=== PATIENT | female | born 1950 | race Caucasian/White ===

== ENCOUNTER → 2024-05-19 12:28 | Outpatient (REF) | payer MEDICARE, OTHER, SELFPAY | LOC: WDC 12:28 | PROVIDERS: ATTENDING PHYSICIAN Family Medicine | DX: Z12.31 Encounter for screening mammogram for malignant neoplasm of breast (principal) | CPT/HCPCS: 77063; 77067 ==

== ENCOUNTER → 2024-07-02 14:34 | Outpatient (REF) | payer MEDICARE, OTHER, SELFPAY | LOC: PAVMRI 14:34 | PROVIDERS: ATTENDING PHYSICIAN Family Medicine | DX: M50.30 Other cervical disc degeneration, unspecified cervical region (principal); M54.2 Cervicalgia; M54.12 Radiculopathy, cervical region | CPT/HCPCS: 72141 ==

== ENCOUNTER → 2024-07-06 12:27 | Outpatient (REF) | payer MEDICARE, OTHER, SELFPAY | LOC: RAD 12:27 | PROVIDERS: ATTENDING PHYSICIAN Internal Medicine Cardiovascular Disease; FAMILY PHYSICIAN Family Medicine | DX: R09.89 Other specified symptoms and signs involving the circulatory and respiratory systems (principal) | CPT/HCPCS: 93922; 93925 ==

== ENCOUNTER 2024-07-28 16:37 | Emergency (ER) | payer MEDICARE, OTHER, SELFPAY ==
[2024-07-28 16:44] VITALS: BP 152/99
[2024-07-28 17:31] VITALS: BMI 32.0
[2024-07-28] MEDS: TYLENOL 1000 MG PO (17:35)
[2024-07-28] MEDS: ADACEL 0.5 ML IM (18:37)
[2024-07-28] MEDS: NORCO 5/325 1 TABLET PO (19:00)
--- NOTE | 2024-07-28 19:35 | ED.GENMED ---
Addendum entered and electronically signed by Nader Chakraborty PA-C 07/29/24 13:37:
Received telephone call from both patient and pharmacy stating that they do not have the Vicodin in stock and are requesting a different prescription. This was verified with pharmacy. New prescription for Percocet for same quantity given. Patient
notified.
Original Note:
History of Present Illness
General
Chief Complaint: Fall
Source: patient
Exam Limitations: none
Time Seen by Provider: 07/28/24 16:57
Nursing documentation reviewed up to this point in time: agreed with
History of Present Illness
History of Present Illness:
73 y/o F with h/o htn, bladder ca, R nephrectomy
here with L wrist pain and L 5th finger pain and forehead sweling after mechanical fall today on her deck
she tripped and hit her head on the ground she believes, but it happened quickly
no loc
most pain is L wrist but she started feeling sore in her neck, L shoulder, L forearm and L5th finger
no chest pain, abdomianl pain, back pain, hip pain
teatnus not UTD
has skin tear on forehead
no headache, no LOC, no dizziness, no fogginess, no AC
Past History
Past History
ED Past Medical History: HTN and Other (Kidney stones)
ED Past Surgical History: None
Social History
Tobacco: Non-smoker
Alcohol: None
Review of Systems
Review of Systems
Allergies reviewed?: Yes
Phy Exam
Physical Exam
Physical Exam:
GENERAL: Alert , in no apparent distress
HEAD: L forehead contusion approx 3 cm hematoma with superficial arc shaped skin tear approx 2 cm
NECK: no midline tenderness, active ROM intact, no paraspinal muscle tenderness;
mild soreness with movement
EYE: pupils equal and reactive, EOMs intact.
ENT: o/p clr, mmm. no hemotympanum
CARDIAC: Regular rate and rhythm, no edema
LUNGS: Clear breath sounds bilaterally, no acute respiratory distress, no wheezes/rales/rhonchi
ABDOMEN: Soft, without focal tenderness, no r/g, no cvat no bruising
NEUROLOGICAL: Alert and oriented, no focal neuro deficits, CN intact, 5/5 strength, sensation intact
SKIN: Warm and dry, skin tear forehead
MUSCULOSKELETAL: L shoulde rmild soreness, full rom intact
lef telbow full ROM intact
prox L forearm mild tenderness
mod tednerenss to L distal wrist and STS and tenderness to L prox 5th phalanx
limited painful ROM of th ewrist and finger
PSYCH: Normal and appropriate interaction.
Course
Orders/Labs/Results
Orders:
Orders
07/28/24 16:50
CR Wrist - Left Min 3 Views Urgent
Comment:
Reason For Exam: fall
07/28/24 17:26
CT Cervical Spine W/o Iv Contr Urgent
Comment:
Reason For Exam: neck pain, fall
CT Head W/o Iv Contrast Urgent
Comment:
Reason For Exam: headache, fall, hit head
Acetaminophen [Tylenol] 1,000 mg PO NOW STA
Tetanus/Diphth/Acelpertussis [Adacel] 0.5 ml IM .ONCE ONE
Forearm, Left 2 View [CR Forearm - Left 2 View] Urgent
Comment:
Reason For Exam: left forearm pain
07/28/24 17:28
Hand, Left 3 View [CR Hand - Left Min 3 Views] Urgent
Comment:
Reason For Exam: left pinky finger fracture
07/28/24 17:37
Shoulder, Left 2 View CR [CR Shoulder - Left Min 2 View*] Urgent
Comment:
Reason For Exam: fall
07/28/24 18:58
Hydrocodone 5/APAP 325 [[place] 5/325] 1 tablet PO NOW STA
Vital Signs
Initial and Last Documented VS:
Initial Vital Signs
Temp Pulse Resp BP Pulse Ox
97.9 F 105 18 152/99 100
07/28/24 16:44 07/28/24 16:44 07/28/24 16:44 07/28/24 16:44 07/28/24 16:44
Last Documented Vital Signs
Temp Pulse Resp BP Pulse Ox
97.9 F 105 18 152/99 100
07/28/24 16:44 07/28/24 16:44 07/28/24 16:44 07/28/24 16:44 07/28/24 16:44
MDM/Problems Addressed
Differential Diagnosis Includes:
wrist fracture, finger fracture, contusion, head injury, abrasion, concussion
MDM/Problems Addressed:
73 y/o F
no AC
mechanical fall today with mostly L wrist and 5th finger injury
also hit head
no vomiting, LOC
on exam neuro nitact
hematoma L forehead
superficial abrasion, tetanus updated
offered steristrips but pt declined
unlikely concussion
head ct neg
incidental c spine findings d/w pt and she was already aware
L wrist xray indep reviewed, L 5th finger fracture indep reviewed
impacted distal radius fracture
forearm and shoulder arthritis
avoids ndsaids becuase of nephrectomy
tylenol or vicodin prn pain
wrist immobilized with sugar tong
sling
*Critical Care Note
Total Time (30-74mins, 75-104mins- exclusive of procedures): Not Applicable
ED Attending Note
-
Portions of this chart may have been created with voice recognition software.� Occasional wrong word or��sound alike� substitutions may have occurred due to the inherent limitations of voice recognition software.
Discharge Plan
Departure
Patient Disposition: Home (Routine Discharge)
Date of Disposition: 07/28/24
Time of Disposition: 18:37
Patient with high blood pressure during this ER visit?: Yes
Condition: Fair
Covid-19: Not Applicable
Discharge Problem:
Distal radius fracture, Finger fracture, Contusion of head
Instructions: Wound Care (DC), Wrist Fracture
Prescriptions:
New
hydrocodone-acetaminophen 5-325 mg tablet
1 tab PO BID PRN (Reason: Pain) Qty: 12 0RF
No Action
metoprolol succinate 25 MG tablet extended release 24 hr
25 mg PO DAILY Qty: 30 0RF
amlodipine 5 MG tablet
5 mg PO DAILY
aspirin 81 MG tablet,delayed release (DR/EC)
81 mg PO DAILY
Referrals:
Jeffy Decker MD [Active] - Follow up in 1 week
Gray Triana MD [Family Provider] -
Activity Restrictions/Additional Instructions:
You have both 5th proximal phalanx fracture (5th finger) and a distal radius fracture. Please follow-up with hand surgery Dr. Decker for this.
Ice off-and-on, elevate your arm, use a sling while awake, remove it at night. Your head and neck scans show some degenerative changes but no trauma. Your wound on your forehead was treated with Steri-Strips. Allow them to fall off, keep them dry
for 2 days. After that you can get them wet. You cannot get the wrist splint wet. Do not take it off unless it feels extra tight and then you can rewrap it. Take either Tylenol
2-3 times a day or the hydrocodone/Tylenol tablet called Vicodin as needed for pain. The Vicodin can make you sleepy.
Return for any concerns
Interventions
Interventions:
*Risk Screen - Suicide Last Done: 07/28/24 17:29
*General Assessment Last Done: 07/28/24 16:44
*ED COVID-19 Vaccine History Last Done: 07/28/24 16:44
*Nursing Disposition Last Done: 07/28/24 19:04
ED-Musculoskeletal Assessment Last Done: 07/28/24 17:29
ED- Neurological Assessment Last Done: 07/28/24 17:29
Discharge Date and Time
Discharge Date/Time: 07/28/24 19:04
Print Language: SRI LANKAN
== END 2024-07-28 19:04 | disposition home or self-care (01) ==
LOC: EMR 16:37
PROVIDERS: EMERGENCY PHYSICIAN Emergency Medicine; FAMILY PHYSICIAN Ophthalmology
DX: S52.592A Other fractures of lower end of left radius, initial encounter for closed fracture (principal); S62.607A Fracture of unspecified phalanx of left little finger, initial encounter for closed fracture; S00.83XA Contusion of other part of head, initial encounter; S00.81XA Abrasion of other part of head, initial encounter; M54.2 Cervicalgia; M25.512 Pain in left shoulder; R51.9 Headache, unspecified; W18.09XA Striking against other object with subsequent fall, initial encounter; Y93.89 Activity, other specified; Y92.008 Other place in unspecified non-institutional (private) residence as the place of occurrence of the external cause; Z23 Encounter for immunization; I10 Essential (primary) hypertension; Z87.442 Personal history of urinary calculi; Z85.51 Personal history of malignant neoplasm of bladder; Z90.5 Acquired absence of kidney
CPT/HCPCS: 99284; 90471; 70450; 72125; 73030; 73090; 73110; 73130; 90715

== ENCOUNTER 2024-10-17 18:39 | Emergency (ER) | payer MEDICARE, OTHER, SELFPAY ==
[2024-10-17 18:57] VITALS: BP 193/117
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
[2024-10-17] MEDS: NSS 500 IV (20:13)
[2024-10-17 20:39] VITALS: BP 156/84
[2024-10-17 20:54] LABS: % Basophils 0.7 % (0-2); % Eosinophils 1.5 % (0-6); % Immature Granulocytes 0.4 % (0-0.5); % Lymphocytes 13.5 % (20.5-51.1); % Neutrophils 75.9 % (42.2-75.2); Absolute Basophils 0.1 10^3/uL (0-0.2); Absolute Eosinophils 0.2 10^3/uL (0-0.7); Absolute Lymphocytes 1.3 10^3/uL (1.2-3.4); Absolute Monocytes 0.8 10^3/uL (0.1-0.6); Absolute Neutrophils 7.5 10^3/uL (1.4-6.5); Hematocrit 38.3 % (37.0-47.0); Hemoglobin 13.2 g/dL (12.0-16.0); Mean Corp Hgb Conc. 34.5 g/dL (33.0-37.0); Mean Corpuscular Hgb 31.5 pg (27.0-31.0); Mean Corpuscular Volume 91.4 fL (81.0-99.0); Mean Platelet Volume 9.3 fL (7.4-10.4); Nucleated Red Blood Cells % 0 %; Platelet Count 268 10^3/uL (130-400); Red Blood Cell Count 4.19 10^6/uL (4.20-5.40); Red Cell Dist. Width 12.7 % (11.5-14.5); White Blood Cell Count 9.9 10^3/uL (4.8-10.8)
[2024-10-17 21:00] VITALS: BP 148/77
[2024-10-17 21:03] LABS: ALT (SGPT) 22 U/L (0-35); AST (SGOT) 26 U/L (14-36); Albumin 4.7 g/dl (3.5-5.0); Alkaline Phosphatase 92 U/L (38-126); Blood Urea Nitrogen 19 mg/dl (7-17); Calcium 9.3 mg/dl (8.4-10.2); Carbon Dioxide 26 mmol/L (22-30); Chloride 99 mmol/L (98-107); Glucose 194 mg/dl (70-99); Sodium 140 mmol/L (135-145); Total Bilirubin 0.8 mg/dl (0.2-1.3); Total Protein 7.9 g/dl (6.3-8.2); eGFR > 60.00
[2024-10-17 21:11] LABS: Troponin I < 0.012 ng/ml
[2024-10-17 21:34] LABS: TSH Reflex To Free T4 2.77 uIU/ml (0.47-4.68)
[2024-10-17 21:44] VITALS: BP 153/75
[2024-10-17 22:00] VITALS: BP 143/72
== END 2024-10-17 22:16 | disposition home or self-care (01) ==
LOC: EMR 18:39
PROVIDERS: Emergency Medicine; EMERGENCY PHYSICIAN Emergency Medicine; FAMILY PHYSICIAN Family Medicine
DX: R07.89 Other chest pain (principal); R00.2 Palpitations; I10 Essential (primary) hypertension
CPT/HCPCS: 99285; 96360; 71046; 71275; 80053; 84443; 84484; 85025; 93005; Q9967

== ENCOUNTER 2024-10-22 15:06 | Outpatient (RCR) | payer MEDICARE, OTHER, SELFPAY | END 2024-10-22 23:59 | disposition home or self-care (01) | LOC: ROT 15:06 | PROVIDERS: ATTENDING PHYSICIAN Orthopaedic Surgery Hand Surgery; PRIMARYCARE PHYSICIAN Family Medicine | DX: S52.572D Other intraarticular fracture of lower end of left radius, subsequent encounter for closed fracture with routine healing (principal); S62.647D Nondisplaced fracture of proximal phalanx of left little finger, subsequent encounter for fracture with routine healing; Z73.6 Limitation of activities due to disability | CPT/HCPCS: 97022; 97110; 97140; 97166; 97535 ==

== ENCOUNTER 2024-10-29 12:59 | Outpatient (RCR) | payer MEDICARE, OTHER, SELFPAY | END 2024-10-29 23:59 | disposition home or self-care (01) | LOC: ROT 12:59 | PROVIDERS: ATTENDING PHYSICIAN Orthopaedic Surgery Hand Surgery; PRIMARYCARE PHYSICIAN Family Medicine | DX: S52.572D Other intraarticular fracture of lower end of left radius, subsequent encounter for closed fracture with routine healing (principal); S62.647D Nondisplaced fracture of proximal phalanx of left little finger, subsequent encounter for fracture with routine healing; Z73.6 Limitation of activities due to disability | CPT/HCPCS: 97022; 97110 ==

== ENCOUNTER 2024-11-27 06:34 | Outpatient (RCR) | payer OTHER, MEDICARE, SELFPAY | END 2024-11-27 23:59 | disposition home or self-care (01) | LOC: RPT 06:34 | PROVIDERS: ATTENDING PHYSICIAN Family Medicine | DX: S16.1XXD Strain of muscle, fascia and tendon at neck level, subsequent encounter (principal); M48.02 Spinal stenosis, cervical region; S39.012D Strain of muscle, fascia and tendon of lower back, subsequent encounter; S39.012A Strain of muscle, fascia and tendon of lower back, initial encounter; Z73.6 Limitation of activities due to disability; V89.2XXA Person injured in unspecified motor-vehicle accident, traffic, initial encounter; V89.2XXD Person injured in unspecified motor-vehicle accident, traffic, subsequent encounter | CPT/HCPCS: 97010; 97110; 97140; 97162 ==

== ENCOUNTER 2024-12-13 08:37 | Outpatient (RCR) | payer OTHER, MEDICARE, SELFPAY | END 2024-12-13 23:59 | disposition home or self-care (01) | LOC: ROT 08:37 | PROVIDERS: ATTENDING PHYSICIAN Orthopaedic Surgery Hand Surgery; PRIMARYCARE PHYSICIAN Family Medicine | DX: S52.572D Other intraarticular fracture of lower end of left radius, subsequent encounter for closed fracture with routine healing (principal); S62.647D Nondisplaced fracture of proximal phalanx of left little finger, subsequent encounter for fracture with routine healing; Z73.6 Limitation of activities due to disability; M62.81 Muscle weakness (generalized) | CPT/HCPCS: 97022; 97110; 97140 ==

== ENCOUNTER 2024-12-28 08:57 | Outpatient (RCR) | payer OTHER, MEDICARE, SELFPAY | END 2024-12-28 23:59 | disposition home or self-care (01) | LOC: RPT 08:57 | PROVIDERS: ATTENDING PHYSICIAN Family Medicine | DX: S16.1XXD Strain of muscle, fascia and tendon at neck level, subsequent encounter (principal); M48.02 Spinal stenosis, cervical region; S39.012D Strain of muscle, fascia and tendon of lower back, subsequent encounter; Z73.6 Limitation of activities due to disability; R20.0 Anesthesia of skin; R20.2 Paresthesia of skin; M62.81 Muscle weakness (generalized); V89.2XXD Person injured in unspecified motor-vehicle accident, traffic, subsequent encounter | CPT/HCPCS: 97010; 97110; 97140 ==

== ENCOUNTER → 2024-12-31 11:12 | Outpatient (REF) | payer MEDICARE, OTHER, SELFPAY ==
[2024-12-31 12:35] LABS: ALT (SGPT) 20 U/L (0-35); AST (SGOT) 27 U/L (14-36); Albumin 5.1 g/dl (3.5-5.0); Alkaline Phosphatase 103 U/L (38-126); Blood Urea Nitrogen 17 mg/dl (7-17); Calcium 9.9 mg/dl (8.4-10.2); Carbon Dioxide 28 mmol/L (22-30); Chloride 97 mmol/L (98-107); Glucose 147 mg/dl (70-99); Potassium 4.7 mmol/L (3.5-5.1); Sodium 136 mmol/L (135-145); Total Bilirubin 1.4 mg/dl (0.2-1.3); Total Protein 8.6 g/dl (6.3-8.2); eGFR > 60.00
[2024-12-31 12:39] LABS: % Basophils 0.7 % (0-2); % Eosinophils 1.7 % (0-6); % Immature Granulocytes 1.8 % (0-0.5); % Lymphocytes 13.6 % (20.5-51.1); % Monocytes 5.8 % (1.7-9.3); % Neutrophils 76.4 % (42.2-75.2); Absolute Basophils 0.1 10^3/uL (0-0.2); Absolute Eosinophils 0.2 10^3/uL (0-0.7); Absolute Immature Granulocytes 0.2 10^3/uL (0-0.05); Absolute Lymphocytes 1.4 10^3/uL (1.2-3.4); Absolute Monocytes 0.6 10^3/uL (0.1-0.6); Absolute Neutrophils 7.8 10^3/uL (1.4-6.5); Hematocrit 42.8 % (37.0-47.0); Hemoglobin 14.5 g/dL (12.0-16.0); Mean Corp Hgb Conc. 33.9 g/dL (33.0-37.0); Mean Corpuscular Hgb 30.9 pg (27.0-31.0); Mean Corpuscular Volume 91.1 fL (81.0-99.0); Mean Platelet Volume 9.8 fL (7.4-10.4); Nucleated Red Blood Cells % 0 %; Platelet Count 289 10^3/uL (130-400); Red Cell Dist. Width 12.5 % (11.5-14.5); White Blood Cell Count 10.2 10^3/uL (4.8-10.8)
[2024-12-31 13:13] LABS: Cortisol, Random 9.9 ug/dl
[2024-12-31 13:15] LABS: Glycohemoglobin (HgbA1c) 8.9 % (4.0-5.6)
[2024-12-31 13:23] LABS: Urine Albumin 2+ (Neg - Trace); Urine Bilirubin Negative (Negative); Urine Character Clear (Clear); Urine Color Yellow; Urine Glucose Negative (Negative); Urine Ketone Negative (Negative); Urine Leukocyte 1+ (Negative); Urine Nitrite Negative (Negative); Urine Occult Blood 1+ (Negative); Urine Urobilinogen Negative (Neg - 1+)
[2024-12-31 14:05] LABS: TSH 2.53 uIU/ml (0.47-4.68)
[2024-12-31 15:35] LABS: Urine Mucus Few
[2024-12-31 15:36] LABS: Urine Bacteria Few (Negative); Urine Hyaline Cast 0-2 /LPF (0-2); Urine Red Blood Cell 0-2 /HPF (0-2)
== END ==
LOC: REG 11:12
PROVIDERS: ATTENDING PHYSICIAN Family Medicine
DX: Z00.00 Encounter for general adult medical examination without abnormal findings (principal); I10 Essential (primary) hypertension; Z86.19 Personal history of other infectious and parasitic diseases; R73.01 Impaired fasting glucose; K57.30 Diverticulosis of large intestine without perforation or abscess without bleeding; M85.89 Other specified disorders of bone density and structure, multiple sites; I77.810 Thoracic aortic ectasia; C68.9 Malignant neoplasm of urinary organ, unspecified; J84.9 Interstitial pulmonary disease, unspecified; Z85.54 Personal history of malignant neoplasm of ureter; J84.89 Other specified interstitial pulmonary diseases
CPT/HCPCS: 36415; 80053; 81003; 81015; 82533; 83036; 84443; 85025

== ENCOUNTER 2025-01-21 06:46 | Outpatient (RCR) | payer OTHER, MEDICARE, SELFPAY | END 2025-01-21 23:59 | disposition home or self-care (01) | LOC: RPT 06:46 | PROVIDERS: ATTENDING PHYSICIAN Family Medicine | DX: S16.1XXD Strain of muscle, fascia and tendon at neck level, subsequent encounter (principal); M48.02 Spinal stenosis, cervical region; S39.012D Strain of muscle, fascia and tendon of lower back, subsequent encounter; Z73.6 Limitation of activities due to disability; R20.0 Anesthesia of skin; V89.2XXD Person injured in unspecified motor-vehicle accident, traffic, subsequent encounter; R20.2 Paresthesia of skin; M62.81 Muscle weakness (generalized) | CPT/HCPCS: 97010; 97110; 97140 ==

== ENCOUNTER 2025-01-25 08:08 | Outpatient (RCR) | payer MEDICARE, OTHER, SELFPAY | END 2025-01-25 23:59 | disposition home or self-care (01) | LOC: ROT 08:08 | PROVIDERS: ATTENDING PHYSICIAN Orthopaedic Surgery Hand Surgery; PRIMARYCARE PHYSICIAN Family Medicine | DX: S52.572D Other intraarticular fracture of lower end of left radius, subsequent encounter for closed fracture with routine healing (principal); S62.647D Nondisplaced fracture of proximal phalanx of left little finger, subsequent encounter for fracture with routine healing; Z73.6 Limitation of activities due to disability; M62.81 Muscle weakness (generalized) | CPT/HCPCS: 97010; 97022; 97110; 97140 ==

== ENCOUNTER 2025-02-20 07:25 | Outpatient (RCR) | payer OTHER, MEDICARE, SELFPAY | END 2025-02-20 23:59 | disposition home or self-care (01) | LOC: RPT 07:25 | PROVIDERS: ATTENDING PHYSICIAN Family Medicine | DX: S16.1XXD Strain of muscle, fascia and tendon at neck level, subsequent encounter (principal); S39.012D Strain of muscle, fascia and tendon of lower back, subsequent encounter; M48.02 Spinal stenosis, cervical region; Z73.6 Limitation of activities due to disability; R20.0 Anesthesia of skin; R20.2 Paresthesia of skin; M62.81 Muscle weakness (generalized); V89.2XXD Person injured in unspecified motor-vehicle accident, traffic, subsequent encounter | CPT/HCPCS: 97010; 97110; 97140 ==

== ENCOUNTER → 2025-02-20 11:00 | Outpatient (REF) | payer MEDICARE, OTHER, SELFPAY ==
--- NOTE | 2025-02-20 14:42 | PN.DE ---
Diabetes Education
- -
02/19/2025 Diabetes Education
Patient self referred for education. Preferred 1:1 appointment. Son Hector referred patient to our office. Patient has history of type 2 diabetes diagnosed 8 years ago, concentrated on diet and weight loss and lost 35 to 40 pounds. PMH also
includes HTN, kidney stones, nephrectomy. Had been controlled for 6 years, last 2 years has started gaining weight. Last A1C 8.9. Primary Doctor, Kamilah, started metformin 500 mg one time per day. Patient has taken it at various times. She has
been taking little to NO carbohydrate, keeping meals to less than 150 calories.
Discussed with patient impact of such restricted caloric intake. She states she is aware. She just doesn't know what to eat.
Patient is 5'3', 165 pounds. Provided 1500 calorie meal plan and nutrition education booklet and reviewed serving sizes how many carbs and proteins to have at a meal as well as gave 2 week sample menu. She is concerned she will be gaining weight.
Discussed with patient importance of testing glucose fasting and 2 hours after each meal. She has been testing glucose on the tips of her fingers, states it really hurts. Demonstrated proper technique for glucose testing. She is agreeable to test
fasting and two hours after each meal. She will email results.
She has a [employer] Ultra glucose monitor.
Discussed with patient she may require BID metformin
Will follow
== END ==
LOC: DES 11:00
PROVIDERS: ATTENDING PHYSICIAN Family Medicine
DX: E11.65 Type 2 diabetes mellitus with hyperglycemia (principal)
CPT/HCPCS: 99078

== ENCOUNTER 2025-02-25 15:20 | Outpatient (RCR) | payer OTHER, MEDICARE, SELFPAY | END 2025-02-25 23:59 | disposition home or self-care (01) | LOC: ROT 15:20 | PROVIDERS: ATTENDING PHYSICIAN Orthopaedic Surgery Hand Surgery; PRIMARYCARE PHYSICIAN Family Medicine | DX: S52.572D Other intraarticular fracture of lower end of left radius, subsequent encounter for closed fracture with routine healing (principal); S62.647D Nondisplaced fracture of proximal phalanx of left little finger, subsequent encounter for fracture with routine healing; Z73.6 Limitation of activities due to disability; M62.81 Muscle weakness (generalized) | CPT/HCPCS: 97022; 97110; 97140 ==

== ENCOUNTER → 2025-04-15 08:28 | Outpatient (REF) | payer MEDICARE, OTHER, SELFPAY ==
[2025-04-15 09:59] LABS: % Basophils 0.9 % (0-2); % Eosinophils 3.9 % (0-6); % Immature Granulocytes 0.3 % (0-0.5); % Lymphocytes 14.6 % (20.5-51.1); % Monocytes 7.5 % (1.7-9.3); % Neutrophils 72.8 % (42.2-75.2); Absolute Basophils 0.1 10^3/uL (0-0.2); Absolute Eosinophils 0.2 10^3/uL (0-0.7); Absolute Lymphocytes 0.9 10^3/uL (1.2-3.4); Absolute Monocytes 0.4 10^3/uL (0.1-0.6); Absolute Neutrophils 4.2 10^3/uL (1.4-6.5); Hematocrit 40.2 % (37.0-47.0); Hemoglobin 13.5 g/dL (12.0-16.0); Mean Corp Hgb Conc. 33.6 g/dL (33.0-37.0); Mean Corpuscular Hgb 31.1 pg (27.0-31.0); Mean Corpuscular Volume 92.6 fL (81.0-99.0); Mean Platelet Volume 9.7 fL (7.4-10.4); Nucleated Red Blood Cells % 0 %; Platelet Count 257 10^3/uL (130-400); Red Blood Cell Count 4.34 10^6/uL (4.20-5.40); Red Cell Dist. Width 13.3 % (11.5-14.5); White Blood Cell Count 5.8 10^3/uL (4.8-10.8)
[2025-04-15 10:24] LABS: ALT (SGPT) 16 U/L (0-35); AST (SGOT) 23 U/L (14-36); Albumin 4.6 g/dl (3.5-5.0); Alkaline Phosphatase 60 U/L (38-126); Blood Urea Nitrogen 21 mg/dl (7-17); Calcium 9.7 mg/dl (8.4-10.2); Carbon Dioxide 28 mmol/L (22-30); Chloride 106 mmol/L (98-107); Glucose 113 mg/dl (70-99); HDL Cholesterol 56 mg/dl; LDL Cholesterol, Calculated 123 mg/dl; Potassium 4.3 mmol/L (3.5-5.1); Sodium 142 mmol/L (135-145); Total Bilirubin 1.5 mg/dl (0.2-1.3); Total Cholesterol 200 mg/dl (50-199); Total Protein 8.1 g/dl (6.3-8.2); Triglyceride 105 mg/dl (10-149); Very Low Density Lipoprotein 21 mg/dl (0-30); eGFR > 60.00
[2025-04-15 11:38] LABS: Glycohemoglobin (HgbA1c) 6.3 % (4.0-5.6)
== END ==
LOC: REG 08:28
PROVIDERS: ATTENDING PHYSICIAN Family Medicine
DX: I10 Essential (primary) hypertension (principal); E78.5 Hyperlipidemia, unspecified; E11.69 Type 2 diabetes mellitus with other specified complication
CPT/HCPCS: 36415; 80053; 80061; 83036; 85025

== ENCOUNTER → 2025-07-26 11:27 | Outpatient (REF) | payer MEDICARE, OTHER, SELFPAY | LOC: HWRAD 11:27 | PROVIDERS: ATTENDING PHYSICIAN Family Medicine | DX: R17 Unspecified jaundice (principal) | CPT/HCPCS: 76700 ==

== ENCOUNTER → 2025-07-30 10:30 | Outpatient (REF) | payer MEDICARE, OTHER, SELFPAY ==
[2025-07-30 11:48] LABS: Microalb - Urine Creatinine 39.400 mg/dl
[2025-07-30 11:52] LABS: Glycohemoglobin (HgbA1c) 6.3 % (4.0-5.6)
[2025-07-30 11:55] LABS: Microalbumin, Random Urine 3.5 mg/dl (0.6-1.7)
[2025-07-30 12:27] LABS: ALT (SGPT) 16 U/L (0-35); AST (SGOT) 22 U/L (14-36); Albumin 4.5 g/dl (3.5-5.0); Alkaline Phosphatase 68 U/L (38-126); Blood Urea Nitrogen 26 mg/dl (7-17); Calcium 9.8 mg/dl (8.4-10.2); Carbon Dioxide 29 mmol/L (22-30); Chloride 102 mmol/L (98-107); Glucose 115 mg/dl (70-99); Potassium 4.8 mmol/L (3.5-5.1); Sodium 136 mmol/L (135-145); Total Protein 7.9 g/dl (6.3-8.2); eGFR > 60.00
[2025-07-30 12:54] LABS: TSH 3.38 uIU/ml (0.47-4.68)
== END ==
LOC: REG 10:30
PROVIDERS: ATTENDING PHYSICIAN Family Medicine
DX: E11.69 Type 2 diabetes mellitus with other specified complication (principal); E78.5 Hyperlipidemia, unspecified; R17 Unspecified jaundice
CPT/HCPCS: 36415; 80053; 82043; 82570; 83036; 84443

== ENCOUNTER → 2025-07-31 07:53 | Outpatient (REF) | payer MEDICARE, OTHER, SELFPAY ==
[2025-07-31 11:21] LABS: HDL Cholesterol 65 mg/dl; LDL Cholesterol, Calculated 119 mg/dl; Very Low Density Lipoprotein 24 mg/dl (0-30)
== END ==
LOC: REG 07:53
PROVIDERS: ATTENDING PHYSICIAN Family Medicine
DX: E11.69 Type 2 diabetes mellitus with other specified complication (principal); E78.5 Hyperlipidemia, unspecified; R17 Unspecified jaundice
CPT/HCPCS: 36415; 80061

== ENCOUNTER → 2025-10-30 09:02 | Outpatient (REF) | payer MEDICARE, OTHER, SELFPAY ==
[2025-10-30 10:23] LABS: Glycohemoglobin (HgbA1c) 6.5 % (4.0-5.9)
[2025-10-30 10:38] LABS: ALT (SGPT) 16 U/L (0-35); AST (SGOT) 24 U/L (14-36); Albumin 4.6 g/dl (3.5-5.0); Alkaline Phosphatase 77 U/L (38-126); Blood Urea Nitrogen 14 mg/dl (7-17); Calcium 9.3 mg/dl (8.4-10.2); Carbon Dioxide 29 mmol/L (22-30); Chloride 99 mmol/L (98-107); Glucose 120 mg/dl (70-99); HDL Cholesterol 64 mg/dl; LDL Cholesterol, Calculated 122 mg/dl; Potassium 4.3 mmol/L (3.5-5.1); Sodium 135 mmol/L (135-145); Total Protein 8.3 g/dl (6.3-8.2); Very Low Density Lipoprotein 21 mg/dl (0-30); eGFR > 60.00
[2025-10-30 10:56] LABS: Microalbumin, Random Urine 5.8 mg/dl (0.6-1.7)
[2025-10-30 11:04] LABS: TSH 2.99 uIU/ml (0.47-4.68)
[2025-10-30 11:28] LABS: Microalb - Urine Creatinine 23.300 mg/dl
== END ==
LOC: REG 09:02
PROVIDERS: ATTENDING PHYSICIAN Family Medicine
DX: E11.69 Type 2 diabetes mellitus with other specified complication (principal); E78.5 Hyperlipidemia, unspecified; R17 Unspecified jaundice
CPT/HCPCS: 36415; 80053; 80061; 82043; 82570; 83036; 84443